=== PATIENT | male | born 1970 | race Hispanic/Latino ===

== ENCOUNTER → 2020-05-21 15:24 | Outpatient (CLI) | payer OTHER, SELFPAY ==
--- NOTE | ~2020-05-21 | US_ITS ---
EXAMINATION: US thyroid DATE: 05/21/2020 15:48 INDICATION: Abnormal thyroid function tests TECHNIQUE: Multiple ultrasound images of the thyroid were obtained. COMPARISON: None. FINDINGS: The right thyroid lobe measures 6.3 x 2.2 x 2.6 cm. The left thyroid lobe measures 4.0 x 1.5 x 1.3 c m. 2.0 wider than tall solid hypoechoic nodule with smooth margins and without echogenic foci at the mid right thyroid. (TI-RADS 4, moderately suspicious , FNA if >=1.5 cm, annual followup is >=1 cm). There are couple similar smaller TI RADS 4 nodules measuring 1.3 cm, 0.9 cm and 0.6 cm at the superio r right thyroid lobe. Taller than wide 1.4 cm solid hypoechoic nodule with smooth margins and small e chogenic foci in the inferior right thyroid (TI-RADS 5, highly suspicious , FNA if >=1.0 cm, annual f ollowup is >0.5 cm). 8 mm wider than tall solid very hypoechoic TI RADS 5 and 3 mm hypoechoic TI RADS 4 nodule in the left thyroid. IMPRESSION: 1. Multinodular goiter. Recommend ultrasound-guided biopsy of the 1.4 cm TI RADS 5 nodule and 2 cm TI RADS 4 nodule in the right thyroid lobe. Reviewed, dictated and finalized at location B. IMPRESSION: 1. Multinodular goiter. Recommend ultrasound-guided biopsy of the 1.4 cm TI RAD S 5 nodule and 2 cm TI RADS 4 nodule in the right thyroid lobe.
== END ==
PROVIDERS: PCP Family Medicine; Visit Provider Physician Assistant
DX: R94.6 Abnormal results of thyroid function studies (principal); E04.2 Nontoxic multinodular goiter
CPT/HCPCS: 76536

== ENCOUNTER 2020-06-09 09:21 | Outpatient (CLI) | payer OTHER, SELFPAY ==
--- NOTE | ~2020-06-09 | US_ITS ---
EXAMINATION: US FNA additional, US FNA w image guidance DATE: 06/09/2020 10:22 INDICATION: Nontoxic multinodular goiter. TECHNIQUE: The procedure and its benefits and risks were discussed with the patient. Risks specifically discusse d included bleeding. The patient verbalized understanding of the risks and agreed to proceed. The nec k was prepped and draped in the usual sterile manner. 1% lidocaine was used for local anesthesia. 5 passes were made with a 25G needle into the lesion in inferior right thyroid lobe under ultrasound g uidance. 5 passes were made with a 25G needle into the lesion in mid right thyroid lobe under ultrasound toya nce. There were no immediate complications. The patient understood to call the ordering physician f or results after a week and a half and verbalized that understanding. FINDINGS: Grayscale ultrasound images demonstrate needles advanced into a 1.4 cm nodule in inferior right thyro id lobe for biopsy. Grayscale ultrasound images demonstrate needles advanced into a 2.0 cm nodule in mid right thyroid lobe IMPRESSION: 1. Ultrasound-guided fine needle aspiration of a nodule in inferior right thyroid lobe. 2. Ultrasound-guided fine-needle aspiration of a nodule in mid right thyroid lobe. Reviewed, dictated and finalized at location A. IMPRESSION: 1. Ultrasound-guided fine needle aspiration of a nodule in inferior right thyr oid lobe. 2. Ultrasound-guided fine-needle aspiration of a nodule in mid right thyroid lo be.
== END 2020-06-09 09:22 | disposition home or self-care (01) ==
PROVIDERS: PCP Family Medicine; Visit Provider Otolaryngology
DX: E04.2 Nontoxic multinodular goiter (principal)
CPT/HCPCS: 10005; 10006; 88173; 88305

== ENCOUNTER 2021-05-14 08:31 | Outpatient (CLI) | payer OTHER, SELFPAY ==
[2021-05-14 08:45] LABS: Basophils Percent Auto 0.3 % (0.2-1.2); Eosinophils Percent Auto 0.5 % (0-4.4); Hematocrit 47.5 % (42.0-52.0); Hemoglobin 14.4 g/dL (14.0-18.0); Immature Granulocyte Absolute 0.01 K/mm3 (0.00-0.031); Immature Granulocyte Percent A 0.2 % (0-0.5); Lymphocytes Absolute Auto 1.73 K/mm3 (0.9-3.2); Mean Corpuscular HGB Conc 30.3 g/dl (32-36); Mean Corpuscular Hemoglobin 22.4 pg (26-34); Mean Corpuscular Volume 73.9 fl (80-100); Mean Platelet Volume 10.6 fl (7.4-10.4); Monocytes Absolute Auto 0.5 K/mm3 (0.1-0.6); Monocytes Percent Auto 7.9 % (2.6-8.5); Neutrophils Absolute Auto 3.7 K/mm3 (1.3-6.7); Neutrophils Percent Auto 62.1 % (45.5-73.1); Platelet Count Result 266 k/mm3 (150-375); Red Blood Count 6.43 M/mm3 (4.6-6.20); Red Cell Distribution Width 16.6 % (11.5-14.5)
[2021-05-14 09:44] LABS: Alanine Aminotransferase 24 U/L (4-50); Albumin Level 4.6 g/dL (3.5-5.1); Alkaline Phosphatase 72 U/L (38-126); Anion Gap 4 mmol/L (8-16); Aspartate Amino Transferase 45 U/L (17-59); Bilirubin,Total 0.5 mg/dL (0.2-1.3); Blood Urea Nitrogen 21 mg/dL (9-20); Calcium 9.3 mg/dL (8.4-10.2); Carbon Dioxide 32 mmol/L (22-30); Chloride 104 mmol/L (98-107); Cholesterol 148 mg/dL (0-200); Estimated Glomerular Filt Rate > 60; Glucose 108 mg/dL (65-110); HDL Direct 37 mg/dL; Potassium 4.6 mmol/L (3.4-5.0); Sodium 140 mmol/L (137-145); Triglycerides 74 mg/dL (<150)
[2021-05-14 10:06] LABS: LDL Cholesterol Direct 82 mg/dL
[2021-05-14 10:15] LABS: Thyroid Stimulating Hormone < 0.015 uIU/mL (0.465-4.680)
[2021-05-14 12:59] LABS: Hemoglobin A1C 5.2 % (<5.7)
== END 2021-05-14 08:32 | disposition home or self-care (01) ==
LOC: ANHLAB 08:34
PROVIDERS: PCP Family Medicine; Visit Provider Nurse Practitioner Gerontology
DX: E04.2 Nontoxic multinodular goiter (principal); R73.03 Prediabetes; R79.89 Other specified abnormal findings of blood chemistry; Z13.220 Encounter for screening for lipoid disorders; I10 Essential (primary) hypertension
CPT/HCPCS: 36415; 80053; 80061; 83036; 84439; 84443; 84480; 85025

== ENCOUNTER 2021-06-29 16:03 | Outpatient (CLI) | payer OTHER, SELFPAY ==
--- NOTE | ~2021-06-29 | US_ITS ---
EXAMINATION: US thyroid DATE: 06/29/2021 16:35 INDICATION: Thyrotoxicosis, unspecified without thyrotoxic crisis. TECHNIQUE: Multiple ultrasound images of the thyroid were obtained. COMPARISON: Ultrasound 05/21/2020 FINDINGS: The right thyroid lobe measures 5.5 x 2.3 x 2.1 cm. The left thyroid lobe measures 5.4 x 1.7 x 1.4 c m. In the right thyroid lobe, there is a 2.1 cm solid, hypoechoic, ocqws-[id number]-lcsz nodule with omar h margin without echogenic foci (TI-RADS TR4), stable from 06/09/20 when biopsy was benign. In the righ t thyroid lobe, there is a 1.4 cm solid, hypoechoic, nnzliq-pbiv-xwsm nodule with lobulated margin an d punctate echogenic foci (TR5), stable from 06/09/20 when biopsy was benign. In the left thyroid lobe, there is a 5 mm solid, hypoechoic, xjuqy-jljz-nabg nodule with smooth margin without echogenic foci (TR4), stable from 05/21/20. IMPRESSION: 1. Stable thyroid nodules, likely not clinically significant. No follow-up is needed. Reviewed, dictated and finalized at location A. IMPRESSION: 1. Stable thyroid nodules, likely not clinically significant. No follow-up is n eeded.
== END 2021-06-29 16:04 | disposition home or self-care (01) ==
PROVIDERS: PCP Family Medicine; Visit Provider Otolaryngology
DX: E05.90 Thyrotoxicosis, unspecified without thyrotoxic crisis or storm (principal); E04.2 Nontoxic multinodular goiter
CPT/HCPCS: 76536

== ENCOUNTER 2022-04-29 01:48 | Day surgery (SDC) | payer OTHER, SELFPAY ==
[2022-04-15 12:37] VITALS: BMI 28.5
[2022-04-29 11:16] VITALS: BP 133/90; PULSE 68; RESP 19; TEMP 36.4; O2SAT 100
[2022-04-29] MEDS: LACTATED RINGERS 1,000 ML 150 ML IV CONT (11:25)
--- NOTE | 2022-04-29 12:10 | P.PNAN_ITS ---
Anes - Initial Pre Proc Eval Procedure: Operation Date: 04/29/22 12:30 Proposed Procedures p Screening Colonoscopy - Amrik Walters MD Date/Time: 04/29/22 12:10 Surgeon: Amrik Walters MD Pre Op Diagnosis: neoplasm screening Patient Data Age: 51 Gender: M Height: 1.75 m Weight: 87.3 kg Last Vital Signs Temp 97.5 F L 04/29/22 11:16 Pulse 68 04/29/22 11:16 Resp 19 04/29/22 11:16 BP 133/90 04/29/22 11:16 Pulse Ox 100 04/29/22 11:16 O2 Del Method Room Air 04/29/22 11:16 Allergies Allergy/AdvReac Type Severity Reaction Status Date / Time methimazole Allergy Intermediate face Verified 04/29/22 11:15 swelling Home Medications Medication Instructions Recorded Confirmed Type multivitamin 1 tablet PO DAILY 09/24/20 04/15/22 History olmesartan 5 mg tablet See Rx Instructions .Route 11/15/21 04/15/22 Rx .COMPLEX #90 tabs hydrochlorothiazide 12.5 mg tablet See Rx Instructions .Route 02/18/22 04/15/22 Rx .COMPLEX #90 tabs Patient hx anesthesia problems: none Family hx anesthesia problems: none Results Review: All pre-operative results and documents have been reviewed as part of the pre- operative evaluation. [facility] Past Medical History Medical History (Updated 02/26/22 @ 16:46 by Cesia Andersen MD) Adult general medical exam Hypertension Multinodular goiter Family History Family History Father Hypertension Family history of diabetes mellitus in first degree relative Mother Hypertension Sibling Patient's sister is in good health Patient's brother is in good health Social History Social History (Updated 02/18/22 @ 09:59 by Catherine Juan) Social History: Smoking status: Never smoker Second hand tobacco smoke exposure: No Alcohol intake: current Drinks per week: 1 Substance use: never Substance use type: does not use Living arrangements: alone Occupation/Education: occupation Gender identity (if verbalized by the patient): Male Sexual Orientation (if Verbalized by the Patient): Straight or Heterosexual Anes - Eval Final PreProcedure Day of Procedure 04/29/22 12:10 Patient weight: normal Heart: regular rate and rhythm Lungs: clear to auscultation Airway: Mallampati scale class II Neurological: alert and oriented Last oral intake: >/= 8 hours ASA classification: II Emergent: no Anesthetic plan: proceed Anesthesia type and monitoring: general GIVS and standard monitoring Results Review: All pre-operative results and documents have been reviewed as part of the pre- operative evaluation. Informed Consent: The patient's anesthetic plan and its attendant risks and benefits were discussed with the patient/family/POA. Questions were solicited and answers provided to the satisfaction of the patient/family/POA.
--- NOTE | 2022-04-29 12:19 | PM.HPGS ---
History of Present Illness History of Present Illness Consent: Risks, benefits, and alternatives have been discussed and questions answered. Patient agrees to proceed with procedure. Chief complaint: neoplasm screening Narrative: Christian Kaufman is a 51 year old male here for first screening colonoscopy Review of Systems Constitutional: Constitutional: Denies headache(s) and Denies weakness Eyes: Eyes: Denies blurry vision ENT: Reports Normal hearing present, Denies headache(s) and Denies neck pain Cardiovascular: Cardiovascular: Denies chest pain and Denies dyspnea Respiratory: Respiratory: Denies dyspnea Gastrointestinal: Gastrointestinal: Reports no additional gastrointestinal complaints Genitourinary: Genitourinary: Denies dysuria Musculoskeletal: Musculoskeletal: Denies neck pain Integumentary/Breasts: Skin/Breast: Denies dry skin Neurologic: Reports Normal hearing present, Denies headache(s) and Denies weakness Psychiatric: Psychiatric: Denies anxiety Endocrine: Endocrine: Denies change in body appearance Hematologic/Lymphatic: Hematologic/Lymphatic: Denies easy bleeding Allergic/Immunologic: Allergic/Immunologic: Denies urticaria PMF Past Medical History Medical History (Updated 02/26/22 @ 16:46 by Cesia Andersen MD) Adult general medical exam Hypertension Multinodular goiter Family History Family History Father Hypertension Family history of diabetes mellitus in first degree relative Mother Hypertension Sibling Patient's sister is in good health Patient's brother is in good health Social History Social History (Updated 02/18/22 @ 09:59 by Catherine Juan) Social History: Smoking status: Never smoker Second hand tobacco smoke exposure: No Alcohol intake: current Drinks per week: 1 Substance use: never Substance use type: does not use Living arrangements: alone Occupation/Education: occupation Gender identity (if verbalized by the patient): Male Sexual Orientation (if Verbalized by the Patient): Straight or Heterosexual Meds Home Medications and Allergies Home Medications Medication Instructions Recorded Confirmed Type multivitamin 1 tablet PO DAILY 09/24/20 04/15/22 History olmesartan 5 mg tablet See Rx Instructions .Route 11/15/21 04/15/22 Rx .COMPLEX #90 tabs hydrochlorothiazide 12.5 mg tablet See Rx Instructions .Route 02/18/22 04/15/22 Rx .COMPLEX #90 tabs Allergies Allergy/AdvReac Type Severity Reaction Status Date / Time methimazole Allergy Intermediate face Verified 04/29/22 11:15 swelling Vital Signs Vital Signs - 24 hr 04/29/22 11:16 Temperature 97.5 F L Pulse Rate 68 Respiratory Rate 19 Blood Pressure 133/90 Pulse Oximetry 100 Oxygen Delivery Room Air Exam Const: General: comfortable and no acute distress HENMT: Face/Nose/Sinus: Normal nares present Eyes: General: appearance normal, both eyes and all related structures Neck: Neck: no JVD Resp: Auscultation: clear to auscultation bilaterally Cardio: Rate: regular rate Rhythm: regular rhythm GI: Inspection: non-distended GI Palp: Yes Soft to palpation Skin: General skin exam: normal color Neuro: General: gait normal Speech: normal speech Extrem: General: normal to inspection Psych: Mental Status: mental status grossly normal Assessment and Plan Assessment and plan (1) Colon cancer screening: Code(s): Z12.11 - Encounter for screening for malignant neoplasm of colon Status: Acute Assessment and Plan: colonoscopy
[2022-04-29 12:41] VITALS: BP 109/76; PULSE 82; RESP 16; O2SAT 96
[2022-04-29 12:51] VITALS: BP 119/73; PULSE 78; RESP 16; O2SAT 96
[2022-04-29 13:01] VITALS: BP 122/88; PULSE 70; RESP 18; O2SAT 99
== END 2022-04-29 13:26 | disposition home or self-care (01) ==
PROVIDERS: PCP Family Medicine; Visit Provider Internal Medicine Gastroenterology
PROC: 0DJD8ZZ Inspection of Lower Intestinal Tract, Via Natural or Artificial Opening Endoscopic (ICD-10-PCS; CPT 45378; principal; 2022-04-29 12:30)
DX: Z12.11 Encounter for screening for malignant neoplasm of colon (principal); K63.5 Polyp of colon; K64.8 Other hemorrhoids; I10 Essential (primary) hypertension
CPT/HCPCS: 45385; 88305; J2704; J7120